=== PATIENT | female | born 1985 | race American Indian/Alaskan Native ===

== ENCOUNTER 2017-10-18 11:06 | Emergency (ER) | payer OTHER ==
[2017-10-18 11:17] VITALS: BP 123/85
[2017-10-18 11:36] LABS: Bacteria,Urine 1+ /HPF (Negative); Bilirubin,Urine NEG (Negative); Blood,Urine NEG (Negative); Color,Urine Yellow (Yellow); HCG Qualitative,Urine Negative (Negative); Mucus,Urine FEW /HPF; Protein,Urine <15 mg/dL mg/dL (Negative); Urobilinogen,Urine < 2.0 mg/dL (<2.0)
--- NOTE | 2017-10-18 12:26 | Emergency Department Report ---
Abscess Boil HPI - HPI Chief Complaint: Skin/Abscess/Foreign Body Stated Complaint: CP/ABD PAIN Time Seen by Provider: 10/18/17 11:24 Duration: >1 Week (1 year) Location: Chest (mid-sternal) Severity: Mild History: Yes Purulent Drainage, Yes Previous History (I&D in [place] last year) , No Fever, No Pain, No Numbness, No Foreign Body, No Insect Bite HPI: This is a 32 y.o. female that presents with a recurrent abscess to mid- sternal chest for 1 year. Patient had I&D in [place] last year and told to return for I&D if it returns. They didn't put her on an antibiotic after draining abscess. It drains when she take a shower and reappear the next morning on and off. Currently draining, denies pain or redness to area. She is also having pelvic pain that started 2 days ago with N/V/D. She is currently not having diarrhea or vomiting at this time. She is having white thick discharge. Reports last time having intercourse was last year when she was living in [place]. Denies fever, frequency, urgency, back pain, and N/V/D. Home Medications: Previous Rx's Medication Instructions Recorded Last Taken Type Ketorolac [Toradol] 10 mg PO Q6H PRN #20 tablet 01/09/16 Unknown Rx Ondansetron [Zofran Odt] 4 mg PO QID PRN #20 tab.rapdis 01/09/16 Unknown Rx Sulfamethoxazole/Trimethoprim 1 each PO BID 10 Days #20 tablet 10/18/17 Unknown Rx [Bactrim Ds Tablet] metroNIDAZOLE [Flagyl TAB] 500 mg PO Q12HR 7 Days #14 tab 10/18/17 Unknown Rx Allergies/Adverse Reactions: Allergies Allergy/AdvReac Type Severity Reaction Status Date / Time No Known Allergies Allergy Unverified 01/08/16 17:21 ED Review of Systems ROS: Stated complaint: CP/ABD PAIN Other details as noted in HPI Constitutional: denies: chills, fever Respiratory: denies: cough, shortness of breath, wheezing Cardiovascular: denies: chest pain, palpitations Gastrointestinal: denies: abdominal pain, nausea, vomiting (N/V Thursday, currently not having symptoms), diarrhea (diarrhea Thursday, subsided) Genitourinary: discharge (white thick discharge, no odor). denies: urgency, dysuria Skin: other (abscess at mid-sternal chest, purulent discharge). denies: rash, lesions Neurological: denies: headache, weakness, numbness, paresthesias ED Past Medical Hx - Past Medical History Previous Medical History?: Yes Additional medical history: sickle cell trait,ovarian cyst - Surgical History Past Surgical History?: No - Social History Smoking Status: Current Every Day Smoker Substance Use Type: None - Medications Home Medications: Home Medications Medication Instructions Recorded Confirmed Last Taken Type Ketorolac [Toradol] 10 mg PO Q6H PRN #20 tablet 01/09/16 Unknown Rx Ondansetron [Zofran Odt] 4 mg PO QID PRN #20 tab.rapdis 01/09/16 Unknown Rx Sulfamethoxazole/Trimethoprim 1 each PO BID 10 Days #20 tablet 10/18/17 Unknown Rx [Bactrim Ds Tablet] metroNIDAZOLE [Flagyl TAB] 500 mg PO Q12HR 7 Days #14 tab 10/18/17 Unknown Rx ED Abscess Boil Physical Exam - Exam General: Vital signs noted. No distress. Alert and acting appropriately. Front/Back of Body, Lg (Color): 1 - 1 cm abscess, no flatulance, purulent discharge, no erythema, tender Size: 1 cm Exam: Yes Tenderness, Yes Normal Neurologic Exam, Yes Normal Circulation, No Fluctuance, No Surrounding Cellulites/Erythema, No Lymphangitis, No Crepitation , No Heart Murmur Exam: 1 cm abscess, no flatulance, purulent discharge, no erythema, tender. : thick white discharge, fishy odor, negative motion tenderness, erythema, & adenexa tenderness ED Course Vital Signs 10/18/17 11:12 Temperature 98 F Pulse Rate 98 H Respiratory 18 Rate Blood Pressure 123/85 O2 Sat by Pulse 100 Oximetry Critical care attestation.: If time is entered above; I have spent that time in minutes in the direct care of this critically ill patient, excluding procedure time. ED Medical Decision Making - Medical Decision Making This is a 32 y.o. female that presents with an abscess at mid-sternal for 1 year. She had a I&D last year and it returned. She was not placed on antibiotics. She is having purulent drainage. She is also c/o vaginal discharge for 2 days. Patient was examined by me. Obtained wound culture, UA, GC, & wet prep via pelvic exam, results positive for acute vaginitis. Physical assessment of abscess is 1 cm, no flatulance, purulent discharge, no erythema, tenderDiscussed results with patient and agreed to treat outpatient for abscess and acute vaginitis. Patient agreed to plan. Instructed to f/u in 3-5 days for results. Discharged home in stable condition. Start metronidazole 500 mg po bid x 7 days. F/U with PCP in 2-3 days. ED Disposition Clinical Impression: Abscess of sternal region, Acute vaginitis Disposition: TO HOME OR SELFCARE Is pt being admited?: No Does the pt Need Aspirin: No Condition: Stable Instructions: Bacterial Vaginosis (ED), Abscess (ED) Additional Instructions: Avoid drinking alcohol for 24 hours after completing antibiotics. Complete full course of bactrim and metronidazole as prescribed. Return to ER in 3-5 days for culture results. Follow up with Primary Care Provider in 2-3 days. Prescriptions: metroNIDAZOLE [Flagyl TAB] 500 mg PO Q12HR 7 Days #14 tab Sulfamethoxazole/Trimethoprim [Bactrim Ds Tablet] 1 each PO BID 10 Days #20 tablet Referrals: [facility] [Outside] - 3-5 Days [facility] [Outside] - 3-5 Days [facility] [Outside] - 3-5 Days [facility] [Outside] - 3-5 Days Time of Disposition: 13:24 Print Language: MALAYSIAN
== END 2017-10-18 13:31 | disposition home or self-care (01) ==
LOC: ED 11:06
DX: L02.213 Cutaneous abscess of chest wall (principal); N76.0 Acute vaginitis; F17.200 Nicotine dependence, unspecified, uncomplicated
CPT/HCPCS: 81001; 81025; 87116; 87210; 87591